=== PATIENT | female | born 1995 | race Hispanic/Latino ===

== ENCOUNTER 2018-01-10 11:48 | Emergency (ER) | payer MEDICARE, OTHER ==
[~2018-01-10] VITALS: Ht 165.1 cm; Wt 62.1 kg
[2018-01-10 12:10] LABS: BASOPHILS % 0.5 % (0.0-1.0); EOSINOPHILS # (AUTO) 0.2 (0.0-0.4); EOSINOPHILS % 2.3 % (0.0-6.0); HEMATOCRIT 39.3 % (34.2-44.1); HEMOGLOBIN 13.4 g/dL (12.0-16.0); LYMPHOCYTES # (AUTO) 1.7 (1.0-3.2); LYMPHOCYTES % 25.8 % (18.0-39.1); MEAN CORPUSCULAR HEMOGLOBIN 29.3 pg (28-32); MEAN CORPUSCULAR HGB CONC 34.1 g/dL (31-35); MEAN CORPUSCULAR VOLUME 85.8 fL (81-99); MONOCYTES # (AUTO) 0.5 (0.2-0.8); MONOCYTES % 7.7 % (4.4-11.3); NEUTROPHILS # (AUTO) 4.2 (2.1-6.9); NEUTROPHILS % 63.4 % (38.7-80.0); PLATELET COUNT 258 x10e3/uL (140-360); RED BLOOD COUNT 4.58 x10e6/uL (3.6-5.1); RED CELL DISTRIBUTION WIDTH 12.4 % (11.7-14.4)
[2018-01-10 12:29] LABS: CLARITY,URINE HAZY (CLEAR); COLOR,URINE YELLOW (YELLOW); LEUKOCYTE ESTERASE ,URINE NEGATIVE (NEGATIVE); NITRITE,URINE NEGATIVE (NEGATIVE); PROTEIN,URINE DIPSTICK 1+ (NEGATIVE)
[2018-01-10 12:30] LABS: BILIRUBIN,URINE NEGATIVE (NEGATIVE); KETONES,URINE TRACE (NEGATIVE); URINE UROBILINOGEN 1 mg/dL (0.2 - 1)
[2018-01-10 12:31] LABS: BACTERIA,URINE MODERATE /HPF; EPITHELIAL CELLS,URINE MODERATE /LPF; WBC,URINE (MAN) 0-5 /HPF (0-5)
[2018-01-10 12:32] LABS: ALANINE AMINOTRANSFERASE 13 IU/L (0-55); ALBUMIN 4.1 g/dL (3.5-5.0); ALBUMIN/GLOBULIN RATIO 1.4 (0.8-2.0); ALKALINE PHOSPHATASE 43 IU/L (40-150); AMORPHOUS SEDIMENT,URINE FEW (FEW); ANION GAP 13.7 mmol/L (8-16); BLOOD UREA NITROGEN 7 mg/dL (7-26); BUN/CREATININE RATIO 9 (6-25); CALCIUM 9.6 mg/dL (8.4-10.2); CARBON DIOXIDE 20 mmol/L (22-29); CHLORIDE 108 mmol/L (98-107); CREATININE, SERUM 0.79 mg/dL (0.57-1.11); EST GLOMERULAR FILTRATION RATE > 60 ML/MIN (60-); GLUCOSE 94 mg/dL (74-118); MUCUS,URINE FEW (RARE); POTASSIUM 3.7 mmol/L (3.5-5.1); SODIUM 138 mmol/L (136-145)
[2018-01-10 12:56] LABS: HCG,QUANTITATIVE 24818.91 mIU/mL (0-10)
--- NOTE | 2018-01-10 13:54 | Diagnostic Imaging Report ---
EXAM: First Trimester Obstetric Pelvic Ultrasound INDICATION: \S\VAG BLEED COMPARISON: None TECHNIQUE: Grayscale transverse and sagittal transabdominal and transvaginal images were obtained of the pelvis. Transvaginal imaging was medically necessary to better evaluate the endometrium, adnexa, and fetus. CLINICAL HISTORY: 22 year old A0 Last menstrual period: 11/27/2017 Clinical gestational age: 6 weeks 2 days FINDINGS: Uterus: Orientation: Normal Size: 6.8 x 4.7 x 6 cm, normal in size Mass: None Cervix: Normal Gestational Sac: Location: Intrauterine Average sac diameter: 1.37 cm Estimated sonographic GA: 6 weeks Appearance: Normal in contour Subchorionic hemorrhage: None Yolk sac: Normal No pole is visualized. Right ovary Size: 2.3 x 1.4 x 1.5 cm Mass/Cyst: None Left ovary Size: 3.4 x 2.1 x 3 cm Mass/Cyst: Complex 2.2 cm cyst, likely a corpus luteal cyst. Small amount of complex appearing free fluid in cul-de-sac and right adnexa. IMPRESSION: 1. Intrauterine with gestational age of 6 weeks by mean sac diameter. 2. No pole is visualized. Recommend correlation with serial beta-hCG and short-term follow-up ultrasound to evaluate for viability. Signed by: Dr. Narendra Cheema MD on 01/10/2018 1:51 PM
[2018-01-10 14:13] VITALS: BP 102/58
== END 2018-01-10 14:24 | disposition home or self-care (01) ==
LOC: ER 11:48
DX: O20.0 Threatened abortion (principal); R10.30 Lower abdominal pain, unspecified; R11.0 Nausea
CPT/HCPCS: 36415; 76817; 80053; 81001; 84702; 85025; 86900; 99283